=== PATIENT | female | born 1985 | race Caucasian/White ===

== ENCOUNTER 2023-04-06 19:54 | Emergency (ER) | payer OTHER ==
[~2023-04-06] VITALS: Ht 157.5 cm; Wt 65.8 kg
[2023-04-06 20:03] VITALS: BP 136/87; PULSE 76; RESP 20; TEMP 98; O2SAT 97
--- NOTE | 2023-04-06 20:10 | NUR ---
Patient to bed 3
--- NOTE | 2023-04-06 20:20 | NUR ---
[employer] in [facility] - 04/06/23 at 2030 by [id number] Patient to bed 3
--- NOTE | 2023-04-06 20:29 | NUR ---
[employer] in [facility] - 04/06/23 at [id number] Barbosa at bedside assessing patient.
--- NOTE | 2023-04-06 20:32 | NUR ---
Female [employer] accompanied female patient for examination by Dr. Barbosa
--- NOTE | 2023-04-06 20:50 | NUR ---
rd lab technician at bedside speaking with patient and obtaining signed consent.
[2023-04-06 20:52] LABS: BASOPHILS % (AUTO) 0.3 % (0.0-2.0); EOSINOPHILS % (AUTO) 0.4 % (0.0-4.0); HEMATOCRIT 38.8 % (36-48); LYMPHOCYTES # (AUTO) 2.4 K/uL (2.5-16.5); LYMPHOCYTES % (AUTO) 29.2 % (20.5-51.1); MEAN CORPUSCULAR HEMOGLOBIN 30 pg (27-31); MEAN CORPUSCULAR HGB CONC 34 g/dL (33-37); MEAN CORPUSCULAR VOLUME 89.4 fL (80-94); MONOCYTES # (AUTO) 0.5 K/uL (0.8-1.0); MONOCYTES % (AUTO) 6.4 % (1.7-9.3); NEUTROPHILS # (AUTO) 5.3 K/uL (1.8-7.7); NEUTROPHILS % (AUTO) 63.7 % (42.2-75.2); PLATELET COUNT (AUTO) 271 K/uL (140-450); RED BLOOD CELL COUNT(AUTO) 4.33 MIL/uL (4.20-5.40); RED CELL DISTRIBUTION WIDTH 15.2 % (11.6-13.7); WHITE BLOOD COUNT (AUTO) 8.3 K/uL (4.8-10.8)
[2023-04-06 21:01] LABS: CARBON DIOXIDE 30.8 mmol/L (21-32); CREATININE 0.8 mg/dL (0.6-1.3); POTASSIUM 3.8 mmol/L (3.5-5.1)
--- NOTE | 2023-04-06 21:19 | NUR ---
Patient back from CT
--- NOTE | 2023-04-06 22:30 | NUR ---
Patient resting in bed, A/Ox4, chest rise and fall symmetrical, no c/o pain or s/s of distress, on monitor.
[2023-04-06 23:00] VITALS: BP 127/88; PULSE 74; RESP 18; TEMP 98.6; O2SAT 100
--- NOTE | 2023-04-06 23:00 | NUR ---
Patient discharged with v/s stable. Written and verbal after care instructions given and explained. Patient verbalized understanding. Ambulatory with steady gait. All questions addressed prior to discharge. Advised to follow up with PMD.
== END 2023-04-06 23:00 | disposition home or self-care (01) ==
LOC: MED 19:54
DX: T85.49XA Other mechanical complication of breast prosthesis and implant, initial encounter (principal); Y92.89 Other specified places as the place of occurrence of the external cause; Z79.899 Other long term (current) drug therapy; Z90.49 Acquired absence of other specified parts of digestive tract; Z98.890 Other specified postprocedural states
CPT/HCPCS: 36415; 71260; 80048; 85025; 99285; Q9967

== ENCOUNTER 2023-05-27 12:54 | Emergency (ER) | payer OTHER ==
[~2023-05-27] VITALS: Ht 157.5 cm; Wt 68.9 kg
[2023-05-27 13:16] VITALS: BP 126/72; PULSE 93; RESP 20; TEMP 97.6; O2SAT 97
[2023-05-27 14:04] VITALS: O2SAT 97
[2023-05-27 14:34] LABS: BASOPHILS % (AUTO) 0.5 % (0.0-2.0); EOSINOPHILS # (AUTO) 0.1 K/uL (0-0.4); EOSINOPHILS % (AUTO) 1.6 % (0.0-4.0); HEMOGLOBIN 13.1 g/dL (12.0-16.0); LYMPHOCYTES # (AUTO) 1.5 K/uL (2.5-16.5); LYMPHOCYTES % (AUTO) 22.6 % (20.5-51.1); MEAN CORPUSCULAR HEMOGLOBIN 31 pg (27-31); MEAN CORPUSCULAR HGB CONC 34 g/dL (33-37); MEAN CORPUSCULAR VOLUME 91.1 fL (80-94); MONOCYTES # (AUTO) 0.5 K/uL (0.8-1.0); NEUTROPHILS # (AUTO) 4.6 K/uL (1.8-7.7); NEUTROPHILS % (AUTO) 68.3 % (42.2-75.2); PLATELET COUNT (AUTO) 288 K/uL (140-450); RED BLOOD CELL COUNT(AUTO) 4.28 MIL/uL (4.20-5.40); RED CELL DISTRIBUTION WIDTH 14.4 % (11.6-13.7); WHITE BLOOD COUNT (AUTO) 6.7 K/uL (4.8-10.8)
[2023-05-27 14:44] VITALS: BP 122/68; PULSE 93; RESP 20; TEMP 97.6; O2SAT 97
== END 2023-05-27 15:59 | disposition home or self-care (01) ==
LOC: MED 12:54
DX: N93.8 Other specified abnormal uterine and vaginal bleeding (principal); R03.0 Elevated blood-pressure reading, without diagnosis of hypertension; Z79.899 Other long term (current) drug therapy
CPT/HCPCS: 36415; 81002; 81025; 85025; 87210; 87491; 99284